=== PATIENT | female | born 1985 | race Caucasian/White ===

== ENCOUNTER 2021-01-19 16:04 | Emergency (ER) | payer OTHER ==
[2021-01-19 16:20] VITALS: BP 147/86; PULSE 110; O2SAT 99
--- NOTE | 2021-01-19 16:32 | ERPHSYRPT ---
- History of Present Illness Time Seen by Provider: 01/19/21 16:20 Source: patient Exam Limitations: no limitations Patient Subjective Stated Complaint: Pain to the left lateral ankle, pt states that there was a round lump but she accidently shaved it off this morning, pt has had this for six months Triage Nursing Assessment: Pt brought self to the ER, hypertensive, tachycardic, w/d'ing from methadone due to her clinic is in [place] and she hasn't had a dose in 2 days, states that she has had a lump on the lateral left ankle for approx 6 months and it has been causing pain and she wants it checked out Physician History: This is a 35-year-old white female who is in a methadone program and states that she has not had any of her medications in a few days and also has skin lesion of her left ankle and right foot. These skin lesions are without infection and have been present for several months. Method of Injury: other (Chronic skin lesions) Occurred: this morning (Bumped into the left lateral ankle lesion) Quality: aching Severity of Pain-Max: mild Severity of Pain-Current: mild Lower Extremities Pain: ankle: left Modifying Factors: Improves With: movement Allergies/Adverse Reactions: meperidine [From Demerol] Allergy (Verified 01/19/21 16:20) Home Medications: Gabapentin [Neurontin] 1,200 mg PO QAM 01/19/21 [History] Quetiapine Fumarate 400 mg PO DAILY 01/19/21 [History] Travel Risk - International Travel Have you traveled outside of the country in past 3 weeks: No - Coronavirus Screening Are you exhibiting any of the following symptoms?: No Close contact with a COVID-19 positive Pt in past 14-21 Days: No - Vaccine Status Have you recieved a Covid-19 vaccination: No - Review of Systems Constitutional: No Symptoms Eyes: No Symptoms Ears, Nose, & Throat: No Symptoms Respiratory: No Symptoms Cardiac: No Symptoms Abdominal/Gastrointestinal: No Symptoms Genitourinary Symptoms: No Symptoms Musculoskeletal: No Symptoms Skin: Other (Chronic skin lesions1 right foot medial aspect with eschar no infection and the second left lateral ankle) Neurological: No Symptoms Psychological: No Symptoms Endocrine: No Symptoms Hematologic/Lymphatic: No Symptoms Immunological/Allergic: No Symptoms All Other Systems: Reviewed and Negative - Past Medical History Pertinent Past Medical History: Yes Neurological History: Seizures, Other Respiratory History: Asthma Other Medical History: MS, optic nerve swelling - Past Surgical History Past Surgical History: Yes Musculoskeletal: Orthopedic Surgery Female Surgical History: Tubal Ligation Other Surgical History: knee, ankle, laser for genital warts - Social History Smoking Status: Current every day smoker Exposure to second hand smoke: Yes Drug Use: none Patient Lives Alone: Yes - Female History Hx Now: No (tubal) - Nursing Vital Signs Nursing Vital Signs: Initial Vital Signs Temperature 98.0 F 01/19/21 16:09 Pulse Rate 110 H 01/19/21 16:09 Blood Pressure 147/86 01/19/21 16:09 O2 Sat by Pulse Oximetry 99 01/19/21 16:09 Pain Scale Pain Intensity 5 - Physical Exam General Appearance: no apparent distress, alert, anxiety Eyes, Ears, Nose, Throat Exam: normal ENT inspection, moist mucous membranes Neck Exam: normal inspection, non-tender, supple, full range of motion Cardiovascular/Respiratory Exam: chest non-tender, no respiratory distress Gastrointestinal/Abdominal Exam: non-tender Back Exam: normal inspection, normal range of motion, No CVA tenderness, No vertebral tenderness Hips Exam: bilateral: non-tender, normal inspection, normal range of motion, no evidence of injury Legs Exam: bilateral leg: non-tender, normal inspection, normal range of motion, no evidence of injury Knees Exam: bilateral knee: non-tender, normal inspection, normal range of motion, no evidence of injury Ankle Exam: left ankle: other (Chronic skin lesion left lateral ankle) Foot Exam: right foot: other (Chronic skin lesion right foot) Neuro/Tendon Exam: normal sensation, normal motor functions, normal tendon functions, responds to pain, no evidence tendon injury Mental Status Exam: alert, oriented x 3, cooperative Skin Exam: normal color, warm, dry, other (See above) SpO2 Interpretation: normal SpO2: 99 O2 Delivery: Room Air - Course Nursing assessment & vital signs reviewed: Yes - Progress Progress Note: 01/19/21 16:32 All of the patient's complaints are chronic and not acute or emergent. Patient is not having any withdrawal symptoms at this time. Counseled pt/family regarding: diagnosis, need for follow-up - Departure Departure Disposition: Home Clinical Impression: Skin lesion of foot Condition: Stable Critical Care Time: No Additional Instructions: Keep all skin lesion sites clean daily with soap and water. Follow-up with your primary care physician or [employer] to undergo a biopsy of the skin lesions. Use Tylenol and ibuprofen for pain control.
== END 2021-01-19 16:45 | disposition home or self-care (01) ==
LOC: ED 16:04
DX: L98.8 Other specified disorders of the skin and subcutaneous tissue (principal); M25.572 Pain in left ankle and joints of left foot; Z79.899 Other long term (current) drug therapy
CPT/HCPCS: 99283